=== PATIENT | female | born 1945 | race Caucasian/White ===

== ENCOUNTER 2023-05-21 09:10 | Inpatient (IN) | payer OTHER, MEDICAID ==
[~2023-05-21] VITALS: Ht 152.4 cm; Wt 40.8 kg
[2023-05-21 09:10] VITALS: BP_SYST 183; PULSE 112; RESP 16; TEMP 97.6; O2SAT 100
[2023-05-21 11:03] LABS: BASOPHILS % (AUTO) 0.3 % (0.0-2.0); EOSINOPHILS % (AUTO) 0.1 % (0.0-4.0); HEMATOCRIT 40.5 % (36-48); HEMOGLOBIN 13.5 g/dL (12.0-16.0); LYMPHOCYTES # (AUTO) 0.4 K/uL (1.0-5.5); LYMPHOCYTES % (AUTO) 3.4 % (20.5-51.5); MEAN CORPUSCULAR HEMOGLOBIN 30 pg (27-31); MEAN CORPUSCULAR HGB CONC 33 % (32-36); MEAN CORPUSCULAR VOLUME 89 fL (79.0-98.0); MONOCYTES # (AUTO) 0.7 K/uL (0.0-1.0); MONOCYTES % (AUTO) 5.5 % (1.7-9.3); NEUTROPHILS # (AUTO) 11.5 K/uL (1.8-7.7); NEUTROPHILS % (AUTO) 90.7 % (40.0-70.0); PLATELET COUNT (AUTO) 330 K/uL (130-430); RED BLOOD CELL COUNT(AUTO) 4.57 MIL/uL (4.2-6.2); RED CELL DISTRIBUTION WIDTH 14.4 % (9.0-15.0); WHITE BLOOD COUNT (AUTO) 12.7 K/uL (4.8-10.8)
[2023-05-21 11:05] LABS: ANION GAP 9 (5-15); CALCIUM 9.2 mg/dL (8.4-11.0); CARBON DIOXIDE 31 mmol/L (23-29); CHLORIDE 105 mmol/L (98-107); CREATININE 0.49 mg/dL (0.55-1.30); GLUCOSE 158 mg/dL (74-106); POTASSIUM 3.2 mmol/L (3.5-5.1); SODIUM SERUM 145 mmol/L (136-145); UREA NITROGEN, BLOOD 18 mg/dL (8-21)
[2023-05-21 11:07] LABS: BILIRUBIN,URINE NEGATIVE (NEGATIVE); BLOOD, URINE NEGATIVE (NEGATIVE); CLARITY/URINE SL CLOUDY (CLEAR); COLOR,URINE YELLOW (YELLOW); GLUCOSE,URINE NEGATIVE (NEGATIVE); KETONES,URINE 1+ (NEGATIVE); LEUKOCYTE ESTERASE ,URINE NEGATIVE (NEGATIVE); NITRITE, URINE NEGATIVE (NEGATIVE); PROTEIN URINE TRACE (NEGATIVE); UROBILINOGEN,URINE 0.2 (0.2-1.0)
[2023-05-21 11:11] LABS: ALANINE AMINOTRANSFERASE 35 U/L (12-78); ALBUMIN 3.1 g/dL (3.4-4.8); ASPARTATE AMINOTRANSFERASE 19 U/L (10-37); BILIRUBIN,DIRECT 0.1 mg/dL (0.0-0.3); CREATINE KINASE, TOTAL 101 U/L (26-192); TOTAL BILIRUBIN 0.6 mg/dL (0.0-1.0); TOTAL PROTEIN, SERUM 6.7 g/dL (6.4-8.3)
[2023-05-21 11:19] LABS: BACTERIA,URINE None Seen /HPF (None Seen); RBC,URINE 0-3 /HPF (0-3); URINE AMORPHOUS PHOSPHATES 3+ /HPF (None Seen); WBC,URINE 0-3 /HPF (0-3)
[2023-05-21] MEDS ORDERED: LEVO25CA4 PO (11:37)
[2023-05-21] MEDS ORDERED: DONE10TA4 PO (11:37)
[2023-05-21] MEDS ORDERED: DUL5 PO (11:37)
[2023-05-21] MEDS ORDERED: CLOP75TA32 PO (11:37)
[2023-05-21] MEDS ORDERED: ACET325T39 PO (11:37)
[2023-05-21] MEDS ORDERED: ASCO500C18 PO (11:37)
[2023-05-21] MEDS ORDERED: IPRA3AMP19 NEB (11:37)
[2023-05-21] MEDS ORDERED: MEMA10TA22 PO (11:37)
[2023-05-21] MEDS ORDERED: CALC-1003 PO (11:37)
[2023-05-21] MEDS ORDERED: BISACODYL 5 MG TABLET.DR (DULCOLAX) PO PRN (11:45)
[2023-05-21] MEDS ORDERED: ONDANSETRON HCL 4 MG/2 ML VIAL IVP PRN (11:45)
[2023-05-21] MEDS ORDERED: ACETAMINOPHEN 325 MG TABLET PO PRN ×2 (11:45→12:00)
[2023-05-21] MEDS ORDERED: ALBUTEROL SULFATE 0.083% 2.5 MG/3 ML VIAL.NEB INH PRN (11:45)
[2023-05-21] MEDS ORDERED: HYDROcodone/ACETAMIN 10-325 MG TAB PO PRN (11:45)
[2023-05-21] MEDS ORDERED: LORazepam 2 MG/ML VIAL IVP PRN (11:45)
[2023-05-21] MEDS ORDERED: IPRATROPIUM BROM 0.5 MG/2.5 ML VIAL.NEB (ATROVENT) INH PRN (11:45)
[2023-05-21] MEDS ORDERED: HYDROcodone/ACETAMIN 5-325 MG TAB (NORCO/ VICODIN) PO PRN (11:45)
[2023-05-21 11:54] VITALS: BP_SYST 183; PULSE 112; O2SAT 90
[2023-05-21] MEDS ORDERED: CALCIUM CARBONATE 500 MG/ TAB.CHEW PO PRN (12:30)
[2023-05-21 13:07] LABS: PROTHROMBIN TIME 10.6 SECS (9.5-12.5)
[2023-05-21] MEDS: NORMAL SALINE 5 ML DISP.SYRIN IVF SCH (14:05)
[2023-05-21] MEDS: CLOPIDOGREL BISULFATE 75 MG TABLET PO SCH (18:03)
[2023-05-21 22:00] VITALS: BP_SYST 142; PULSE 70; RESP 16; TEMP 98; O2SAT 99
[2023-05-21] MEDS: MEMANTINE HCL 5 MG TABLET ONE (22:34)
[2023-05-21] MEDS: DONEPEZIL HCL 5 MG TABLET (ARICEPT) PO SCH (22:34)
[2023-05-21] MEDS: MEMANTINE HCL 5 MG TABLET PO SCH (22:34)
[2023-05-21] MEDS: DONEPEZIL HCL 5 MG TABLET (ARICEPT) ONE (22:34)
[2023-05-22 00:14] VITALS: BP_SYST 144; PULSE 93; RESP 16; TEMP 98.3; O2SAT 98
[2023-05-22] MEDS: LEVOTHYROXINE SODIUM 0.025 MG TABLET PO SCH (06:13)
[2023-05-22 06:18] LABS: BASOPHILS % (AUTO) 0.3 % (0.0-2.0); EOSINOPHILS % (AUTO) 0.1 % (0.0-4.0); HEMATOCRIT 39.1 % (36-48); HEMOGLOBIN 13.2 g/dL (12.0-16.0); LYMPHOCYTES # (AUTO) 0.7 K/uL (1.0-5.5); MEAN CORPUSCULAR HEMOGLOBIN 30 pg (27-31); MEAN CORPUSCULAR HGB CONC 34 % (32-36); MEAN CORPUSCULAR VOLUME 88 fL (79.0-98.0); MONOCYTES # (AUTO) 0.9 K/uL (0.0-1.0); MONOCYTES % (AUTO) 8.6 % (1.7-9.3); NEUTROPHILS # (AUTO) 8.3 K/uL (1.8-7.7); PLATELET COUNT (AUTO) 295 K/uL (130-430); RED BLOOD CELL COUNT(AUTO) 4.44 MIL/uL (4.2-6.2); RED CELL DISTRIBUTION WIDTH 14.3 % (9.0-15.0); WHITE BLOOD COUNT (AUTO) 9.9 K/uL (4.8-10.8)
[2023-05-22 07:07] LABS: ALANINE AMINOTRANSFERASE 26 U/L (12-78); ALBUMIN 2.9 g/dL (3.4-4.8); ANION GAP 8 (5-15); ASPARTATE AMINOTRANSFERASE 13 U/L (10-37); CARBON DIOXIDE 32 mmol/L (23-29); CHLORIDE 105 mmol/L (98-107); CREATININE 0.47 mg/dL (0.55-1.30); GLUCOSE 114 mg/dL (74-106); POTASSIUM 3.1 mmol/L (3.5-5.1); SODIUM SERUM 145 mmol/L (136-145); TOTAL BILIRUBIN 0.7 mg/dL (0.0-1.0); TOTAL PROTEIN, SERUM 6.4 g/dL (6.4-8.3); UREA NITROGEN, BLOOD 21 mg/dL (8-21)
[2023-05-22 08:00] VITALS: BP_SYST 127; PULSE 91; RESP 16; TEMP 98.2; O2SAT 95
[2023-05-22] MEDS: ASCORBIC ACID 500 MG TABLET PO SCH (08:24)
[2023-05-22 08:30] VITALS: O2SAT 95
[2023-05-22] MEDS: POTASSIUM CHLORIDE 20 MEQ TABLET.ER PO ONE (09:15)
[2023-05-22 11:20] VITALS: BP_SYST 135; PULSE 89; RESP 16; TEMP 96.2; O2SAT 93
[2023-05-22] MEDS: POTASSIUM CHLORIDE 40 MEQ, LIDOCAINE JECT 2% PF 100 MG 50 MG in NS 250 ML IV ONE (14:29)
[2023-05-22] MEDS ORDERED: MULT-1193 PO (14:43)
[2023-05-22 15:24] VITALS: BP_SYST 170; PULSE 94; RESP 16; TEMP 98.3; O2SAT 92
[2023-05-22] MEDS ORDERED: hydrALAZINE HCL 20 MG/ML VIAL IVP PRN (15:30)
[2023-05-22] MEDS: D5/0.45 NS 1,000 ML IV SCH (18:40)
[2023-05-22 20:00] VITALS: BP_SYST 170; PULSE 104; RESP 15; TEMP 97.2; O2SAT 100
[2023-05-23] VITALS: BP_SYST 127; PULSE 85; RESP 16; TEMP 98.1; O2SAT 99
[2023-05-23 05:51] LABS: BASOPHILS % (AUTO) 0.4 % (0.0-2.0); EOSINOPHILS % (AUTO) 0.5 % (0.0-4.0); HEMATOCRIT 36.3 % (36-48); HEMOGLOBIN 12.2 g/dL (12.0-16.0); LYMPHOCYTES # (AUTO) 0.8 K/uL (1.0-5.5); LYMPHOCYTES % (AUTO) 7.9 % (20.5-51.5); MEAN CORPUSCULAR HEMOGLOBIN 30 pg (27-31); MEAN CORPUSCULAR HGB CONC 34 % (32-36); MEAN CORPUSCULAR VOLUME 88 fL (79.0-98.0); MONOCYTES # (AUTO) 0.9 K/uL (0.0-1.0); MONOCYTES % (AUTO) 9.1 % (1.7-9.3); NEUTROPHILS # (AUTO) 8.1 K/uL (1.8-7.7); NEUTROPHILS % (AUTO) 82.1 % (40.0-70.0); PLATELET COUNT (AUTO) 288 K/uL (130-430); RED BLOOD CELL COUNT(AUTO) 4.12 MIL/uL (4.2-6.2); RED CELL DISTRIBUTION WIDTH 14.2 % (9.0-15.0); WHITE BLOOD COUNT (AUTO) 9.8 K/uL (4.8-10.8)
[2023-05-23 06:27] LABS: ANION GAP 6 (5-15); CALCIUM 8.6 mg/dL (8.4-11.0); CARBON DIOXIDE 31 mmol/L (23-29); CHLORIDE 104 mmol/L (98-107); CREATININE 0.39 mg/dL (0.55-1.30); GLUCOSE 135 mg/dL (74-106); POTASSIUM 3.3 mmol/L (3.5-5.1); SODIUM SERUM 141 mmol/L (136-145); UREA NITROGEN, BLOOD 13 mg/dL (8-21)
[2023-05-23 08:00] VITALS: BP_SYST 163; PULSE 88; RESP 16; TEMP 97.9; O2SAT 97
[2023-05-23 10:56] VITALS: O2SAT 95
[2023-05-23 12:00] VITALS: BP_SYST 100; PULSE 73; RESP 16; TEMP 97; O2SAT 100
[2023-05-23 15:27] LABS: PROTHROMBIN TIME 10.6 SECS (9.5-12.5)
[2023-05-23 16:00] VITALS: BP_SYST 122; PULSE 86; RESP 17; TEMP 98.8; O2SAT 100
[2023-05-23 19:00] VITALS: BP_SYST 120; PULSE 86; RESP 18; TEMP 97.7; O2SAT 99
[2023-05-24] VITALS: BP_SYST 128; PULSE 78; RESP 18; TEMP 97.7; O2SAT 99
[2023-05-24 04:00] VITALS: BP_SYST 116; PULSE 86; RESP 18; TEMP 97.5; O2SAT 99
[2023-05-24 06:27] LABS: BASOPHILS % (AUTO) 0.6 % (0.0-2.0); EOSINOPHILS # (AUTO) 0.2 K/uL (0.0-0.4); EOSINOPHILS % (AUTO) 2.5 % (0.0-4.0); HEMOGLOBIN 12.2 g/dL (12.0-16.0); LYMPHOCYTES # (AUTO) 0.8 K/uL (1.0-5.5); LYMPHOCYTES % (AUTO) 12.8 % (20.5-51.5); MEAN CORPUSCULAR HEMOGLOBIN 29 pg (27-31); MEAN CORPUSCULAR HGB CONC 33 % (32-36); MEAN CORPUSCULAR VOLUME 89 fL (79.0-98.0); MONOCYTES # (AUTO) 0.5 K/uL (0.0-1.0); MONOCYTES % (AUTO) 8.8 % (1.7-9.3); NEUTROPHILS # (AUTO) 4.6 K/uL (1.8-7.7); NEUTROPHILS % (AUTO) 75.3 % (40.0-70.0); PLATELET COUNT (AUTO) 267 K/uL (130-430); RED BLOOD CELL COUNT(AUTO) 4.17 MIL/uL (4.2-6.2); RED CELL DISTRIBUTION WIDTH 13.9 % (9.0-15.0)
[2023-05-24 07:00] VITALS: O2SAT 99
[2023-05-24 07:02] LABS: ANION GAP 6 (5-15); CALCIUM 8.8 mg/dL (8.4-11.0); CARBON DIOXIDE 31 mmol/L (23-29); CHLORIDE 106 mmol/L (98-107); GLUCOSE 96 mg/dL (74-106); POTASSIUM 3.3 mmol/L (3.5-5.1); SODIUM SERUM 143 mmol/L (136-145); UREA NITROGEN, BLOOD 8 mg/dL (8-21)
[2023-05-24 07:33] LABS: WHITE BLOOD COUNT (AUTO) 6.2 K/uL (4.8-10.8)
[2023-05-24 08:00] VITALS: BP_SYST 126; PULSE 92; RESP 18; TEMP 97.6; O2SAT 97
[2023-05-24 12:27] VITALS: BP_SYST 118; PULSE 87; RESP 18; TEMP 97.4; O2SAT 95
== END 2023-05-24 14:30 | disposition hospice, inpatient (51) | DRG 304 ==
LOC: SED 09:10 → STU 11:25 → SMU 05-23 11:11
PROVIDERS: ADMIT Preventive Medicine Preventive Medicine/Occupational Environmental Medicine; ATTEND Preventive Medicine Preventive Medicine/Occupational Environmental Medicine
DX: I16.0 Hypertensive urgency (principal); J96.00 Acute respiratory failure, unspecified whether with hypoxia or hypercapnia; G45.9 Transient cerebral ischemic attack, unspecified; G81.14 Spastic hemiplegia affecting left nondominant side; G91.2 (Idiopathic) normal pressure hydrocephalus; I12.9 Hypertensive chronic kidney disease with stage 1 through stage 4 chronic kidney disease, or unspecified chronic kidney disease; N18.9 Chronic kidney disease, unspecified; Z66 Do not resuscitate; D72.829 Elevated white blood cell count, unspecified; E03.9 Hypothyroidism, unspecified; E87.6 Hypokalemia; E88.09 Other disorders of plasma-protein metabolism, not elsewhere classified; F03.90 Unspecified dementia, unspecified severity, without behavioral disturbance, psychotic disturbance, mood disturbance, and anxiety; I25.10 Atherosclerotic heart disease of native coronary artery without angina pectoris; Z79.01 Long term (current) use of anticoagulants; Z86.73 Personal history of transient ischemic attack (TIA), and cerebral infarction without residual deficits; Z79.899 Other long term (current) drug therapy; R13.10 Dysphagia, unspecified
CPT/HCPCS: 36415; 70450-TC; 71045; 80048; 80053; 80076; 81000; 81001; 81015; 82550; 83605; 84484; 85025; 85610; 85730; 87081; 92610-GN; 93005; 93306; 99285; G0378; J3480; J7050